=== PATIENT | female | born 1960 | race Two or more races ===

== ENCOUNTER 2019-02-14 15:58 | Emergency (ER) | payer MEDICAID ==
[~2019-02-14] VITALS: Ht 157.5 cm; Wt 56.7 kg
[2019-02-14 16:30] VITALS: BP 115/71
--- NOTE | 2019-02-14 16:30 | NUR ---
ED Nurse Note: Patient walked in to ER from home due to Rt eye redness and itchness. Patient alert and oriented x4 and amulatory. Skin clean and intact. Calm and cooperative. No acute distress noted at this time.
[2019-02-14] MEDS ORDERED: OCUFLOX5 ML RIGHT EYE (16:39)
[2019-02-14 16:48] VITALS: BP 118/76
--- NOTE | 2019-02-14 16:51 | NUR ---
ED Nurse Note: Pt cleared by health care Provider for discharge. DC instructions/prescription was given and explained to pt and verbalized understanding of teachings. All medical deviecs such as ID band removed. Pt is AAO x4, ambulatory and left with all personal belongings and daughter.
--- NOTE | 2019-02-14 20:25 | Emergency Room Report ---
History of Present Illness General Chief Complaint: Eye Problems Source: Patient, Family Member Present Illness HPI 59-year-old female presents ED for evaluation. Complaining of right eye pain. On and off for the last month. Also notes redness and tearing. Pain is dull, 5 out of 10, nonradiating. History of cataract surgery in 2017 to the right eye. States she was seen by the rice dryer mechanic earlier this month but states she did not have the symptoms at that time. Denies any change in visual acuity. Denies any blurry vision. No other aggravating relieving factors. Denies any other associated symptoms Allergies: Coded Allergies: No Known Allergies (Unverified , 02/14/19) Patient History Past Medical History: HTN Past Surgical History: none Pertinent Family History: none Social History: Denies: smoking, alcohol use, drug use Now: No Immunizations: UTD Reviewed Nursing Documentation: PMH: Agreed; PSxH: Agreed Nursing Documentation-PMH Past Medical History: No Stated History Hx Hypertension: Yes Review of Systems All Other Systems: negative except mentioned in HPI Physical Exam Vital Signs Date Time Temp Pulse Resp B/P (MAP) Pulse Ox O2 Delivery O2 Flow Rate FiO2 02/14/19 16:30 98.1 84 18 115/71 (86) 100 Room Air Sp02 EP Interpretation: reviewed, normal General Appearance: no apparent distress, alert, GCS 15, non-toxic Head: normocephalic Eyes: right eye Scleral Injection; left eye normal inspection; bilateral eye PERRL, bilateral eye EOMI ENT: normal ENT inspection Neck: normal inspection Respiratory: normal inspection Cardiovascular #1: normal inspection Gastrointestinal: normal inspection Rectal: deferred Genitourinary: no CVA tenderness Musculoskeletal: normal inspection Neurologic: alert, oriented x3, responsive, motor strength/tone normal, sensory intact, speech normal Psychiatric: normal inspection Skin: no rash Lymphatic: normal inspection Medical Decision Making Diagnostic Impression: Primary Impression: Conjunctivitis Qualified Codes: H10.9 - Unspecified conjunctivitis ER Course Hospital Course 59 yo F presents to ED c/o R eye redness/pain Differential diagnoses include: conjunctivitis, traumatic iritis, foreign body, corneal abrasion Clinical course Patient placed on stretcher. After initial history, physical exam revealed a middle-aged female no acute distress. There is injected conjunctiva R eye. Pupils equally reactive to light bilaterally. No evidence of foreign body. Clinical findings consistent with conjunctivitis. discussed findings with patient. Change in visual acuity. Not clinically concerning for glaucoma. Will discharge to home with prescription for Ocuflox. States she will follow-up with her rice dryer mechanic Diagnosis - conjunctivitis Stable and discharged to home with prescription for Ocuflox. Followup with PMD/ Optho. Return to ED if symptoms recur or worsen Last Vital Signs Date Time Temp Pulse Resp B/P (MAP) Pulse Ox O2 Delivery O2 Flow Rate FiO2 02/14/19 16:48 97.6 84 18 118/76 100 Room Air Status: improved Disposition: HOME, SELF-CARE Condition: Stable Scripts Ofloxacin (OCUFLOX) 5 Ml Drops 1 DROP RIGHT EYE QID for 7 Days, ML Prov: Braden Thakur MD 02/14/19 Referrals: [facility] (PCP) Patient Instructions: Bacterial Conjunctivitis, Gpnl-[id number] Braden Thakur MD Feb 14, 2019 20:25
== END 2019-02-14 16:48 | disposition home or self-care (01) ==
LOC: EMR 16:40
DX: H10.9 Unspecified conjunctivitis (principal); I10 Essential (primary) hypertension
CPT/HCPCS: 99282